=== PATIENT | female | born 1985 | race African-American/Black ===

== ENCOUNTER 2019-07-09 01:46 | Emergency (ER) | payer BC ==
[2019-07-09 02:27] LABS: #Basophils 0.1 thou/uL (0.0-0.2); #Eosinphils 0.3 thou/uL (0.0-0.7); #Lymphocytes 3.7 thou/uL (1.20-3.40); #Monocytes 0.6 thou/uL (0.11-0.59); #Neutrophils 3.1 thou/uL (1.40-6.50); %Basophils 1.1 % (0.0-1.0); %Eosinophils 3.5 % (0.0-10.0); %Lymphocytes 47.5 % (21.0-51.0); %Monocytes 7.1 % (0.0-10.0); %Neutrophils 40.7 % (42.0-75.0); Hemoglobin 12.2 g/dL (12.0-16.0); Mean Corpuscular HGB CONC 33.9 g/dL (32.0-36.0); Mean Corpuscular Hemoglobin 32.4 pg (27.0-31.0); Mean Corpuscular Volume 95.4 fL (78.0-98.0); Mean Platelet Volume 7.6 fL (7.4-10.4); Platelet Count 255 thou/uL (130-400); Red Blood Cell (RBC) Count 3.76 mill/uL (4.20-5.40); White Blood Cell (WBC) Count 7.7 thou/uL (4.8-10.8)
[2019-07-09 02:48] LABS: ALT (SGPT) 14 U/L (8-55); AST (SGOT) 13 U/L (5-34); Albumin 3.9 g/dL (3.5-5.0); Alkaline Phosphatase 42 U/L (40-150); Anion Gap 11 mmol/L (10-20); BUN (Urea Nitrogen) 13 mg/dL (7.0-18.7); Bilirubin, Total 0.2 mg/dL (0.2-1.2); Calc. Creatinine Clearance 0 mL/min (70-130); Calcium 9.8 mg/dL (7.8-10.44); Carbon Dioxide 25 mmol/L (22-29); Chloride 105 mmol/L (98-107); Estimated GFR-MDRD Greater than 90; Globulin 3.9 g/dL (2.4-3.5); Glucose 103 mg/dL (70-105); Potassium 3.8 mmol/L (3.5-5.1); Protein, Total 7.8 g/dL (6.0-8.3); Sodium 137 mmol/L (136-145)
[2019-07-09 03:08] LABS: Bacteria/HPF None Seen HPF (None Seen); Bilirubin Negative (Negative); Blood, Urine 1+ (Negative); Clarity Clear (Clear); Glucose, Urine (Dipstick) Normal (Negative); Leukocyte 250 Leu/uL (Negative); Nitrite Negative (Negative); Protein, Urine (Dipstick) 20 mg/dL (Neg-Trace)
[2019-07-09 03:14] LABS: Pregnancy Test - Urine (BHCG) Negative (Negative); Pregu Control Background? CLEAR/WHITE (CLR/WHITE); Pregu Control Bar Appear? YES (CONTROL BAR); Specific Gravity 1.035 (1.002-1.036)
[2019-07-09] MEDS ORDERED: Acetaminophen 500 MG TAB ONE (05:15)
--- NOTE | 2019-07-09 09:04 | CT ---
PRELIMINARY REPORT/[facility]/EMERGENCY AFTER HOURS PROCEDURE: EXAM: CT Abdomen and Pelvis With Contrast EXAM DATE/TIME: 07/09/2019 2:37 AM CLINICAL HISTORY: 34 years old, female; Acute; Patient HX: 34yo F presenting with cc of rlq abdominal pain. She states she has had this pain for about a month and that it has gotten worse which is why she came in. She st ates that it is located in the rlq and does not radiate, stabbing in nature. She states it is intermi ttently occurring daily, about every 3 hours. Laying down flat, walking, and movement makes it worse. Initially ibuprofen helped with the pain but it has started to stop working. She endorses some nause a but no vomiting. Denies any fever, chills, SOB, chest pain, palpitations, diarrhea or constipation. S he denies any hematuria or dysuria. TECHNIQUE: Imaging protocol: Computed tomography of the abdomen and pelvis with intravenous contrast. COMPARISON: No relevant prior studies available. FINDINGS: Liver: There are no focal liver lesions identified. Gallbladder and bile ducts: There are numerous stones within the gallbladder. Pancreas: Normal. No ductal dilation. Spleen: Normal. No splenomegaly. Adrenals: Normal. No mass. Kidneys and ureters: The kidneys appear normal. No hydronephrosis. Stomach and bowel: The transverse colon is collapsed Appendix: A normal appendix is identified. Intraperitoneal space: Unremarkable. No free air. No significant fluid collection. Vasculature: Unremarkable. No abdominal aortic aneurysm. Lymph nodes: Unremarkable. No enlarged lymph nodes. Bladder: The bladder is normal. Reproductive: There is an enlarged fibroid uterus. Bones/joints: Unremarkable. No acute fracture. Soft tissues: Unremarkable. IMPRESSION: 1. Cholelithiasis. 2. Fibroid uterus. Thank you for allowing us to participate in the care of your patient. Dictated and Authenticated by: Justino Díaz MD 07/09/2019 3:00 AM Central Time ([place] & [place]) FINAL REPORT CT ABDOMEN AND PELVIS: Date: 07/09/19 COMPARISON: None. HISTORY: Right lower quadrant pain. FINDINGS: The visualized lung bases are unremarkable. There is no free intraperitoneal air apparent. The liver and spleen are grossly unremarkable. There is cholelithiasis. Pancreas, adrenal glands, and kidneys are grossly unremarkable. The lack of oral contrast media limits assessment of the bowel. Uterus is lobulated and enlarged, containing numerous solid masses suggesting uterine fibroid disease . No focal area of bowel inflammatory change is seen. No evidence for bowel obstruction. The appendix appears unremarkable. The vascular structures of the abdomen/pelvis appear patent. No abdominal or pelvic lymphadenopathy i s seen. No acute osseous abnormality is noted. IMPRESSION: 1. Cholelithiasis. 2. Fibroid uterus. This report is in agreement with the preliminary report given by [facility]. POS: OFF
--- NOTE | 2019-07-09 09:13 | ULT ---
PRELIMINARY REPORT/[facility]/EMERGENCY AFTER HOURS PROCEDURE: EXAM: US Pelvis Complete, Transabdominal and US Duplex Artery or Vein, Ovaries, Limited EXAM DATE/TIME: 07/09/2019 3:44 AM CLINICAL HISTORY: 34 years old, female; Patient HX: Rlq pelvic pain x 1 month, nausea; Additional info: Please compare to previous CT TECHNIQUE: Imaging protocol: Real-time transabdominal pelvic ultrasound with image documentation. Real-time dupl ex ultrasound scan of the arterial or venous flow of the ovaries with B-mode, color Doppler flow and spectral waveform analysis. Complete Pelvis, Limited Duplex. COMPARISON: CT Abdomen Pelvis W Con 07/09/2019 2:37 AM FINDINGS: Uterus/cervix: Uterus measures 10.7 x 7.8 x 9.2 cm. Endometrial thickness measures 5 mm. There are nu merous uterine fibroids for example a 2.2 x 1.4 x 1.3 cm fibroid within the left subserosal region, a 2.8 x 1.7 x 2.0 cm fibroid in the left submucosal region, a 3.4 cm fibroid in the left lower uterine segment and a 2.3 x 1.2 x 2.0 cm fibroid in the submucosal right fundal region. Right adnexa: Right ovary measures 3.3 x 1.9 x 2.2 cm. Normal right ovarian arterial and venous wavef orms. No torsion. Left adnexa: Left ovary measures 4.3 x 1.7 x 2.3 cm. Normal left ovarian arterial and venous waveform s. No torsion. Free fluid: There is no free fluid. Bladder: Normal. IMPRESSION: 1. Fibroid uterus as above; largest measuring 3.4 cm within the left uterus. 2. No evidence of ovarian torsion on either side. Thank you for allowing us to participate in the care of your patient. Dictated and Authenticated by: Justino Díaz MD 07/09/2019 4:33 AM Central Time ([place] & [place]) PELVIC ULTRASOUND: HISTORY: Right lower quadrant pain. TECHNIQUE: Transabdominal exam only. No endovaginal performed. FINDINGS: Real-time imaging of the pelvis obtained transabdominally shows the uterus measuring 7.8 x 9.2 x 10.7 cm. Several fibroids were identified. The largest was 3.4 cm. The right and left ovaries are both difficult to visualize but appear unremarkable. On Doppler evaluation with spectral analysis, normal flow is shown to the adnexa. IMPRESSION: Enlarged fibromatous appearing uterus; otherwise unremarkable examination. This report is in agreement with the preliminary report issued by [facility]. POS: OFF
[2019-07-09] MEDS ORDERED: ISOVUE-370 76%-LOCM 1 ML ONE (15:22)
== END 2019-07-09 05:15 | disposition home or self-care (01) ==
LOC: ERS 01:46
DX: R10.31 Right lower quadrant pain (principal)
CPT/HCPCS: 74177; 76856; 80053; 81003; 81015; 81025; 83690; 85025; 93976; 96372; J0500; Q9966

== ENCOUNTER 2020-06-10 14:27 | Outpatient (CLI) | payer MEDICAID ==
--- NOTE | 2020-06-10 15:15 | ULT ---
Exam: Pelvic ultrasound HISTORY: Abnormal vaginal bleeding. COMPARISON: 07/09/2019 TECHNIQUE: Multiple grayscale and color Doppler images were obtained in a transabdominal and transvag inal pelvic ultrasound. Spectral analysis of the Doppler waveforms of the ovaries were performed. FINDINGS: CERVIX: Small nabothian cyst. UTERUS: Uterus is heterogeneous in appearance with evidence of heterogeneous masses. Largest mass is seen in the uterine fundus which measures 5 cm in maximal dimensions. A few additional smaller uterine masses are seen. These masses are likely related to uterine fibroids. ENDOMETRIAL STRIPE: 17 mm which is increased in thickness. No fluid or fluid collection is seen in th e endometrial canal. No free fluid is present. RIGHT OVARY: Normal flow, without focal mass. LEFT OVARY: Normal flow, without focal mass. IMPRESSION: 1. Fibroid uterus with largest fibroid measuring 5 cm in the region of the body and fundus of the jorge vladimir on the left. 2. Mild thickening of the endometrial stripe measuring 17 mm.
== END 2020-06-10 14:28 | disposition home or self-care (01) ==
LOC: BICULT 14:27
PROVIDERS: ATTEND Nurse Practitioner Women's Health
DX: N93.9 Abnormal uterine and vaginal bleeding, unspecified (principal); D25.9 Leiomyoma of uterus, unspecified; R93.89 Abnormal findings on diagnostic imaging of other specified body structures
CPT/HCPCS: 76856